=== PATIENT | female | born 1990 | race Caucasian/White ===

== ENCOUNTER 2020-08-23 09:50 | Outpatient (CLI) | payer MEDICAID, SELFPAY ==
[2020-08-23 09:56] VITALS: TEMP 36.2
[2020-08-23 09:57] VITALS: BMI 39.8
[2020-08-23 09:58] VITALS: RESP 16
[2020-08-23 10:00] VITALS: BP 129/70; PULSE 75
[2020-08-23 10:15] VITALS: BP 124/66; PULSE 77
[2020-08-23 10:24] VITALS: BP 124/66; PULSE 77
== END 2020-08-23 10:23 | disposition home or self-care (01) ==
LOC: OPOB 09:51 → OBGYN 09:52
PROVIDERS: PCP Nurse Practitioner Family; Visit Provider Family Medicine
DX: O24.419 Gestational diabetes mellitus in pregnancy, unspecified control (principal); Z3A.00 Weeks of gestation of pregnancy not specified
CPT/HCPCS: 59025

== ENCOUNTER 2020-08-30 09:42 | Outpatient (CLI) | payer MEDICAID, SELFPAY ==
[2020-08-30 09:42] VITALS: BMI 36.7
[2020-08-30 09:45] VITALS: BMI 39.2
[2020-08-30 09:54] VITALS: BP 142/77; PULSE 81
[2020-08-30 10:11] VITALS: BP 135/78; PULSE 79
[2020-08-30 10:25] VITALS: BP 135/78; PULSE 79
== END 2020-08-30 10:28 | disposition home or self-care (01) ==
LOC: OPOB 09:46 → OBGYN 09:52
PROVIDERS: PCP Nurse Practitioner Family; Visit Provider Family Medicine
DX: O24.419 Gestational diabetes mellitus in pregnancy, unspecified control (principal); Z3A.00 Weeks of gestation of pregnancy not specified
CPT/HCPCS: 59025

== ENCOUNTER 2020-09-06 09:34 | Outpatient (CLI) | payer MEDICAID, SELFPAY ==
[2020-09-06 09:46] VITALS: BP 136/80; PULSE 83
[2020-09-06 10:01] VITALS: BP 129/77; PULSE 74
[2020-09-06 10:17] VITALS: BP 117/67; PULSE 72
[2020-09-06 10:23] VITALS: BMI 39.8
[2020-09-06 10:42] VITALS: BP 117/67; PULSE 72; RESP 18
== END 2020-09-06 10:20 | disposition home or self-care (01) ==
LOC: OPOB 09:40 → OBGYN 09:41
PROVIDERS: PCP Nurse Practitioner Family; Visit Provider Family Medicine
DX: O24.419 Gestational diabetes mellitus in pregnancy, unspecified control (principal); Z3A.00 Weeks of gestation of pregnancy not specified
CPT/HCPCS: 59025; 99211

== ENCOUNTER 2020-09-13 09:25 | Outpatient (CLI) | payer MEDICAID, SELFPAY ==
[2020-09-13 09:37] VITALS: BP 138/82; PULSE 69; RESP 18; TEMP 36.1; TEMP 36.3
[2020-09-13 09:52] VITALS: BP 133/80; PULSE 65
[2020-09-13 10:07] VITALS: BP 143/79; PULSE 71
[2020-09-13 10:59] VITALS: BMI 39.8
== END 2020-09-13 10:20 | disposition home or self-care (01) ==
LOC: OPOB 09:27 → OBGYN 09:29
PROVIDERS: PCP Nurse Practitioner Family; Visit Provider Family Medicine
DX: O24.419 Gestational diabetes mellitus in pregnancy, unspecified control (principal); Z3A.00 Weeks of gestation of pregnancy not specified
CPT/HCPCS: 59025; 99211

== ENCOUNTER 2020-09-20 09:22 | Outpatient (CLI) | payer MEDICAID, SELFPAY ==
[2020-09-20 09:33] VITALS: TEMP 36.1
[2020-09-20 09:34] VITALS: BP 148/94; PULSE 76
[2020-09-20 09:43] VITALS: RESP 17
[2020-09-20 09:44] VITALS: BMI 39.8
[2020-09-20 09:50] VITALS: BP 136/78; PULSE 81
[2020-09-20 10:04] VITALS: BP 134/82; PULSE 82
[2020-09-20 10:19] VITALS: BP 141/77; PULSE 82
== END 2020-09-20 10:36 | disposition home or self-care (01) ==
LOC: OPOB 09:28 → OBGYN 09:29
PROVIDERS: PCP Family Medicine; Visit Provider Family Medicine
DX: O24.419 Gestational diabetes mellitus in pregnancy, unspecified control (principal); Z3A.00 Weeks of gestation of pregnancy not specified
CPT/HCPCS: 59025

== ENCOUNTER 2020-09-22 04:46 | Inpatient (IN) | payer MEDICAID, SELFPAY ==
--- NOTE | 2020-09-18 12:10 | ANES.PREANE2 ---
Pre-Anesthetic Assessment Pre-Anesthetic Assessment: Preop Diagnosis: IUP Proposed Procedure: Operation Date: 09/22/20 07:00 Proposed Procedures p Section Repeat With Tubal(Not Applicable) - Michael Carpenter MD Familial anesthetic complications: None Was Beta Grant taken within 24 hours: N/A Was Clonidine taken within 24 hours: N/A Social: Social History: No alcohol and No tobacco Exam: Pre-Anes Outpt Exam: alert, oriented x 3, clear to auscultation bilaterally and regular rate & rhythm Airway: Cervical ROM: WNL MP: 4 Dentition: Chipped and Other (missing) GI: GI: GERD Metabolic: Metabolic: DM (gestational DM) and Morbid obesity Musc/skel: Musc/skel: Scoliosis (was told this twice during her epidural and her spinal) Anesthetic Plan: ASA status: 3 Anesthesia: Regional (specify below) Risk of > 500 ml blood loss (7ml/kg in children): No Data Anesthesia Cardiac Studies: No Data to Display
[2020-09-22] VITALS (15 sets, daily range): BP systolic 120–148; BP diastolic 49–88; PULSE 72–91; RESP 15–18; TEMP 36.3–36.9; O2SAT 97–99; BMI 42.3
[2020-09-22 05:44] LABS: Basophils # 0.1 10^3/uL (0.0-0.1); Basophils % 0.5 %; Eosinophils # 0.2 10^3/uL (0.0-0.8); Eosinophils % 1.6 %; Hematocrit 34.2 % (37.0-47.0); Hemoglobin 10.5 g/dL (11.5-15.3); Lymphocytes # 1.4 10^3/uL (0.8-4.8); Lymphocytes % 14.4 %; Mean Corpuscular HGB Conc 30.7 g/dL (30.0-36.0); Mean Corpuscular Hemoglobin 24.9 pg (28.0-34.0); Mean Corpuscular Volume 81.2 fL (81-99); Mean Platelet Volume 11.1 fL (7.4-10.4); Monocytes # 0.8 10^3/uL (0.2-0.9); Monocytes % 8.5 %; Neutrophils % 73.7 %; Nucleated Red Blood Cells % 0 %; Platelet Count 319 10^3/cmm (130-400); Red Blood Count 4.21 10^6/uL (4.1-5.3); Red Cell Distribution Width 17.6 % (12.1-15.1); White Blood Count 9.8 10^3/uL (4.0-10.0)
[2020-09-22] MEDS: lactated ringers 1,000 ML 999 ML IV (05:59)
[2020-09-22] MEDS: metoclopramide 5 mg/mL SDV 2 mL 10 MG IVP (06:45)
[2020-09-22] MEDS: famotidine 20 mg/2 mL INJ IVP (06:45)
[2020-09-22] MEDS: citric acid-sodium citrate 30 mL UDC PO (06:46)
--- NOTE | 2020-09-22 06:46 | P.HP_ITS ---
Providers/Chief Complaint Admitting Physician: Michael Carpenter MD Primary Care Provider: Michael Carpenter MD Chief Complaint: due date 09/22 History of Present Illness Marry Harley is a 30 year old 4 para 2-0-1-2 female with well- controlled gestational diabetes at 39 weeks estimated gestational age who presents for a repeat section and bilateral tubal ligation. Her has been remarkable for gestational diabetes. It was found during a screening at 28 weeks. She has controlled her diabetes with glyburide at 2.5 mg daily and Metformin 1000 mg daily. Review of Systems General: Reports: 10 or more systems reviewed and unremarkable except in HPI and below Const: Reports: fatigue; Denies: fever(s) Eyes: Denies: change in vision Card: Denies: chest pain GI: Reports: heartburn Musc: Reports: back pain Devendra/Lymph: Denies: easy bruising Medications/Allergies Home Medications Medication Instructions Recorded Confirmed Last Taken Type Vitamin DAILY 09/13/20 09/13/20 09:00 History glyburide PO DAILY 09/13/20 09/21/20 History metformin PO BID 09/13/20 09/21/20 History omeprazole PO DAILY 09/13/20 09/21/20 History Allergies Allergy/AdvReac Type Severity Reaction Status Date / Time codeine Allergy ADR-Nausea Verified 08/23/20 10:19 PFSH Acute Female Reproductive History: : 4 Vitals/I&O/Wt Last Vital Signs Temp 97.3 F L 09/22/20 05:06 Pulse 84 09/22/20 05:06 BP 139/86 09/22/20 05:06 Weight last 48 hrs Weight 217 lb Physical Exam Const: COMMON NORMALS: patient oriented x3 and alert HENMT: COMMON NORMALS: moist oral mucous membranes HEAD & SCALP: normal to inspection Chest: COMMONS NORMALS: normal inspection of the chest Resp: COMMON NORMALS: clear to auscultation bilaterally AUSCULTATION: clear to auscultation bilaterally Cardio: COMMON NORMALS: regular rate and regular rhythm RATE: regular rate RHYTHM: regular rhythm GI: INSPECTION: Yes normal to inspection and Yes other (Gravid) Extremity: COMMON NORMALS: normal to inspection GENERAL: Yes edema (Trace) Neuro: COMMON NORMALS: patient oriented x3, moves all extremities and no sensory deficits noted SENSORIUM/ORIENTATION: Yes alert Psych: COMMON NORMALS: mental status grossly normal Skin: COMMON NORMALS: no rashes or lesions noted GENERAL SKIN EXAM: no rashes or lesions noted Data : 09/22/20 05:20 A&P Assessment and plan (1) Sterilization: Status: Acute (2) 39 weeks gestation of : Status: Acute (3) Gestational diabetes mellitus: Status: Acute (4) History of low transverse section: Proceed with a repeat lower transverse section, as well as a bilateral tubal ligation. We discussed the risks of both the and tubal ligation in my office. Once again this morning we also discussed the risks of bleeding, infection, and damage intra-abdominal organs. We also once again discussed the chance of becoming again after a successful tubal ligation. The patient had no further questions and wishes to proceed. Status: Acute Attestations Medical Necessity Statement*: Anticipate routine and post care. Coding Level of Care Code Acute Compliance Quality Performance Analyst for [facility] Diagnoses Sterilization Z30.2 39 weeks gestation of Z3A.39 Gestational diabetes mellitus O24.419 History of low transverse section Z98.891
--- NOTE | 2020-09-22 07:13 | ANES.PAUD2 ---
Pre-Anesthetic Update Pre-Anesthetic Assessment: Date of Surgery/Procedure: 09/22/20 Preop Diagnosis: IUP Proposed Procedure: Operation Date: 09/22/20 07:00 Proposed Procedures p Section Repeat With Tubal(Not Applicable) - Michael Carpenter MD Any changes to Pre-Anesthetic Assessment?: No Last Intake: Intake Last Liquid Date 09/21/20 Last Liquid Time 21:30 Last Solid Date 09/21/20 Last Solid Time 20:00 Labs Last 48hrs: Laboratory Results - last 48 hr 09/22/20 05:20 WBC 9.8 RBC 4.21 Hgb 10.5 L Hct 34.2 L MCV 81.2 MCH 24.9 L MCHC 30.7 RDW 17.6 H Plt Count 319 MPV 11.1 H Neut % (Auto) 73.7 Lymph % (Auto) 14.4 Shannon % (Auto) 8.5 Eos % (Auto) 1.6 Baso % (Auto) 0.5 Neut # (Auto) 7.20 Lymph # (Auto) 1.4 Shannon # (Auto) 0.8 Eos # (Auto) 0.2 Baso # (Auto) 0.1 Nucleated RBC % (a uto) 0 Nucleated RBCs # 0.0 Vitals: Temperature 97.3 F L 09/22/20 05:06 Pulse Rate 84 09/22/20 05:06 Pulse Rhythm 09/22/20 06:24 Pulse Strength 3+ Normal 09/22/20 06:24 Respiratory Effort Non-Labored 09/22/20 06:24 Respiratory Depth Normal 09/22/20 06:24 Respiratory Patter n 09/22/20 06:24 Blood Pressure 139/86 09/22/20 05:06 Oxygen Delivery Me thod 09/22/20 06:24 Exam: Pre-Anes Outpt Exam: alert, oriented x 3, clear to auscultation bilaterally and regular rate & rhythm Cardiac Studies: No Data to Display
--- NOTE | 2020-09-22 08:26 | PM.OP ---
Operative Report Date of procedure: September 22, 2020 Pre-op Diagnosis: 39-week gestation, previous , desires sterilization Post-op diagnosis: same Procedure Done: 1. Lower transverse section, repeat 2. Intraoperative bilateral tubal ligation using a modified [place] technique Specimens removed/disposition: 1. Healthy-appearing term female infant weighing 7 pounds 2 ounces with Apgars of 8 and 9 2. Placenta with a three-vessel cord delivered intact 3. Bilateral fallopian tube segments with the right segment being tagged Pathology: other (Bilateral fallopian tube segments with the right segment being tagged) Anesthesia: Other (Spinal) Estimated blood loss (mL): 800 Condition: stable Disposition: floor (OB) Brief History: Refer to history and physical Procedure: The patient was brought back to the operating room where she was prepped and draped in usual sterile fashion. Anesthesia was found to be adequate. A lower transverse skin incision was then made with a #10 blade. I then dissected down to the underlying subcutaneous tissue until arriving at the prerectal fascia. The fascia was then nicked with the scalpel bilaterally. The fascial incisions were then carried laterally with Kathleen scissors. Attention was then turned to the superior aspect of the incision which was grasped with kochers and tented up away from the underlying rectus abdominis muscles. The muscles were then dissected away from the fascia manually, and later with Kathleen scissors. Attention was then turned to the inferior aspect of the incision, and the fascia was dissected away from the underlying muscle in similar fashion. The rectus abdominis muscles were then spread manually. The peritoneum was entered manually. Extensive adhesions were noted. The adhesions were mostly broken down manually, but I also used Metzenbaums and a Bovie. Excellent visualization of the uterus was noted. A lower transverse uterine incision was then made with a #10 blade. Upon arriving at the intrauterine cavity, the uterine incision was then extended manually. The infant was noted to be in vertex position. The baby was delivered without difficulty. After delivery, the mouth and nose were suctioned at the site of the incision. There was no meconium. There was no nuchal cord. The cord was cut and clamped. The baby was then handed to the waiting nurse. The placenta was removed intact. The uterus was externalized. The intrauterine cavity was cleansed of any remaining debris. The lower uterine wall was very thin, and a 1 layer repair was performed with a lock stitch using 0 Vicryl. Attention was then turned to the left fallopian tube which was ligated cut and cauterized with 0 chromic in the using a modified [place] technique. Attention was then turned to the right fallopian tube which was also ligated cut and cauterized in similar fashion. The uterus was replaced into the abdomen. The peritoneum was then irrigated with warm saline. I reexamined the uterine incision and found it to be hemostatic. The lower uterine segment superior to the uterine incision was noted to have about an area of 3 x 4 cm where the parametrium was missing as result of removing the adhesions. I was able to obtain excellent hemostasis with the Bovie. Interceed was then placed. After the rectus abdominis muscles were then reapproximated using 0 Vicryl in a running stitch. The fascia was then reapproximated using 0 Vicryl in running stitch. The subcutaneous tissue was then reapproximated using 0 Vicryl in a running stitch. The skin was reapproximated using essie. A sterile dressing was placed. All counts were correct x2. Both the mother and baby were in stable condition. Associated Problem List Diagnoses (1) 39 weeks gestation of : (2) Sterilization: (3) History of low transverse section:
--- NOTE | 2020-09-22 08:27 | ANE.PACU2 ---
Inpatient post-anesthesia follow up: Airway intact: Yes Vital signs: Temperature 97.3 F Pulse Rate 84 Respiratory Rate Blood Pressure 139/86 Pulse Oximetry Oxygen Delivery Me thod Room Air Oxygen Flow Rate Fraction of Inspir ed Oxygen Hydration adequate: Yes Nausea and vomiting: No Pain level: 1 Mental status: Baseline
[2020-09-22] MEDS: dextrose 5%-lactated ringers 1,000 ML 125 ML IV ×2 (09:07→20:36)
[2020-09-22] MEDS: ondansetron 2 mg/ML SDV 2 mL 4 MG IVP ×2 (09:19→13:49)
[2020-09-22] MEDS: ketorolac 30 mg/mL INJ IVP ×2 (13:49→20:14)
[2020-09-22] MEDS: sodium chloride 0.9% 500 ML 999 ML IV ×2 (14:56→17:05)
[2020-09-22 16:32] LABS: Glucose Point of Care 105 mg/dL (70-110)
[2020-09-22 17:26] LABS: Hemoglobin 9.6 g/dL (11.5-15.3); Mean Corpuscular Hemoglobin 24.6 pg (28.0-34.0); Mean Corpuscular Volume 79.5 fL (81-99); Mean Platelet Volume 10.4 fL (7.4-10.4); Platelet Count 292 10^3/cmm (130-400); Red Cell Distribution Width 14.7 % (12.1-15.1); White Blood Count 12.1 10^3/uL (4.0-10.0)
--- NOTE | 2020-09-22 17:45 | PC.NURSE ---
Pt ambulating in hallway at this time. Pt ambulates around OB unit and back to room without difficulties. Pt denies dizziness, lightheadedness, or feeling nauseous. Pt back to chair once in room to eat clear liquid tray.
[2020-09-22] MEDS: ferrous sulfate EC 325 mg Tablet PO (20:14)
[2020-09-22] MEDS: docusate sodium 100 mg Capsule PO (20:14)
--- NOTE | 2020-09-22 20:15 | PC.NURSE ---
pt ambulated one lap in the [place] at this time
[2020-09-23] MEDS: ketorolac 30 mg/mL INJ IVP (01:46)
[2020-09-23 04:41] VITALS: BP 131/77; PULSE 80; RESP 17; TEMP 36.9; O2SAT 96
[2020-09-23 05:06] LABS: Hematocrit 28.6 % (37.0-47.0); Hemoglobin 8.8 g/dL (11.5-15.3); Mean Corpuscular HGB Conc 30.8 g/dL (30.0-36.0); Mean Corpuscular Hemoglobin 24.6 pg (28.0-34.0); Mean Corpuscular Volume 80.1 fL (81-99); Mean Platelet Volume 10.7 fL (7.4-10.4); Platelet Count 277 10^3/cmm (130-400); Red Blood Count 3.57 10^6/uL (4.1-5.3); Red Cell Distribution Width 14.7 % (12.1-15.1); White Blood Count 8.6 10^3/uL (4.0-10.0)
[2020-09-23 07:04] LABS: Glucose Point of Care 118 mg/dL (70-110)
--- NOTE | 2020-09-23 08:00 | PM.OBGYDC ---
Discharge Providers HOTEL RESERVATIONIST Date of Admission: 09/22/20 04:46 Date of Discharge: 09/23/20 Attending Provider at Admission: Michael Carpenter MD Attending Provider at Discharge: Michael Carpenter MD Primary Care Provider: Michael Carpenter MD Diagnoses at Discharge Discharge Diagnosis (1) 39 weeks gestation of : Status: Acute (2) Sterilization: Status: Acute (3) History of low transverse section: Status: Acute Reason for Visit Reason for Visit: due date 09/22 Hospital Course Hospital Course The patient presented to the hospital for a repeat section and bilateral tubal ligation. The surgery went smoothly. Her course was also smooth. She initially had some lower urine output, that resolved with a couple of boluses. She was able to get up and around without difficulty. On her first day she did have some more pain. But she passed flatus. Her diet was advanced she tolerated that well. Her bleeding was within normal limits. Information Peripartum Data: Delivery Method: Physical Exam Narrative: EXAM NARRATIVE: She is in no acute distress Lungs are clear auscultation bilaterally Her heart has a regular rate and rhythm Her fundus is below the umbilicus and firm Her dressing is clean, dry and intact Her extremities have trace edema Urinary Catheter Management^: Corbett: Cath Placed During This Visit: yes Reason for Continuing Indwelling Catheter: Accurate Measurement of Urinary Output in Critically Ill Patients Urinary Catheter Date of Insertion: 09/22/20 Urinary Catheter Time of Insertion: 07:11 Discharge Data Data Completed and Pending: Pending at discharge Category Date Time Status Pathology: Surgic al [PTH] Routine Pth 09/22/20 16:19 Ordered Labs from last 24 hours 09/23/20 09/23/20 09/22/20 07:01 04:30 17:10 WBC 8.6 12.1 H RBC 3.57 L 3.90 L Hgb 8.8 L 9.6 L Hct 28.6 L 31.0 L MCV 80.1 L 79.5 L MCH 24.6 L 24.6 L MCHC 30.8 31.0 RDW 14.7 14.7 Plt Count 277 292 MPV 10.7 H 10.4 POC Glucose 118 H 09/22/20 16:23 WBC RBC Hgb Hct MCV MCH MCHC RDW Plt Count MPV POC Glucose 105 Vitals: Last Vital Signs Temp 98.4 F 09/23/20 04:41 Pulse 80 09/23/20 04:41 Resp 17 09/23/20 04:41 BP 131/77 09/23/20 04:41 Pulse Ox 96 09/23/20 04:41 Discharge Plan Discharge Patient Disposition: Home Condition: Stable Prescriptions: New ibuprofen 800 mg Tablet 800 mg PO TID Qty: 45 RF: 0 oxycodone-acetaminophen 5-325 mg Tablet 1 - 2 tab PO Q4H PRN (Reason: Moderate To Severe Pain) Qty: 30 RF: 0 ferrous sulfate 325 mg (65 mg iron) Tablet,Delayed Release (Dr/Ec) 325 mg PO BID Qty: 30 RF: 0 Continued Vitamin DAILY RF: 0 Discontinued metformin PO BID RF: 0 glyburide PO DAILY RF: 0 omeprazole PO DAILY RF: 0 Discharge Orders: Discharge Order (Routine); Ordered 09/23/20 Ordered By: Michael Carpenter Referrals: Michael Carpenter MD [Primary Care Provider] - 4-7 days (Also set up appt in 6 weeks.) Discharge Diet: Usual diet Discharge Activity: Limit activity as instructed Patient Instructions: Vitamins (By mouth), Pre-eclampsia and Eclampsia (DC), Bleeding (DC), OB - Pauline/Angelique, OB Discharge Report, OB Food/Drug Interaction Guide, Opioid Safety, OB Proud Parent Packet Activity Restrictions/Additional Instructions: Check sugars once a day until the next appointment with Dr. Carpenter Discharge Attestations HOTEL RESERVATIONIST Time Spent in Discharge Care*: less than 30 min Coding Level of Care Code Acute Grocery Buyer for Chg Fwd Diagnoses 39 weeks gestation of Z3A.39 Sterilization Z30.2 History of low transverse section Z98.891
[2020-09-23] MEDS: ibuprofen 800 mg tablet PO ×2 (09:28→15:19)
[2020-09-23] MEDS: ferrous sulfate EC 325 mg Tablet PO (09:28)
[2020-09-23] MEDS: docusate sodium 100 mg Capsule PO (09:29)
[2020-09-23] MEDS: prenatal vitamin Capsule 1 CAP PO (09:29)
[2020-09-23 09:33] VITALS: BP 139/81; PULSE 79; RESP 15; TEMP 36.8; O2SAT 98
[2020-09-23 15:07] VITALS: BP 140/71; PULSE 90; RESP 16; TEMP 36.8; O2SAT 98
[2020-09-23 15:37] VITALS: BP 140/71; PULSE 90; RESP 16; TEMP 36.8
== END 2020-09-23 15:39 | disposition home or self-care (01) | DRG 785 ==
PROVIDERS: Admitting Provider Family Medicine; PCP Family Medicine; Visit Provider Family Medicine
PROC: 10D00Z1 Extraction of Products of Conception, Low, Open Approach (ICD-10-PCS; CPT 59514; principal; 2020-09-22 07:00)
DX: O34.211 Maternal care for low transverse scar from previous cesarean delivery (principal); Z3A.39 39 weeks gestation of pregnancy; Z37.0 Single live birth; O24.425 Gestational diabetes mellitus in childbirth, controlled by oral hypoglycemic drugs; O75.89 Other specified complications of labor and delivery; Z30.2 Encounter for sterilization
CPT/HCPCS: 12345; 36415; 36416; 51702; 58611; 59025; 59409; 82962; 85025; 85027; 88302; 96374; 96375; J0690; J1885; J2274; J2370; J2405; J2765; J3490; J7040